=== PATIENT | male | born 1955 | race Two or more races ===

== ENCOUNTER 2022-05-30 13:39 | Emergency (ER) | payer MEDICARE, MEDICAID ==
[~2022-05-30] VITALS: Ht 175.3 cm; Wt 91.0 kg
[2022-05-30] MEDS: SODIUM CHLORIDE 0.9% 1,000 ML IV ONE (14:40)
[2022-05-30 15:01] LABS: CHLORIDE 107 mEq/L (98-107)
[2022-05-30 15:09] LABS: BASOPHILS % 0.5 % (0.0-2.0); EOSINOPHILS % 1.6 % (0.0-5.0); HEMATOCRIT. 32.2 % (42.0-52.0); LYMPHOCYTES % 26.8 % (20.0-50.0); MEAN CORPUSCULAR HEMOGLOBIN 31.1 pg (28.0-32.0); MEAN CORPUSCULAR VOLUME 91.4 fL (80.0-94.0); MEAN PLATELET VOLUME 9.1 fl (7.4-10.4); MONOCYTES % 8.7 % (2.0-8.0); NEUTROPHILS % 62.4 % (40.0-76.0); PLATELET 137 x1000/uL (130-400); RED BLOOD CELL COUNT 3.52 mill/uL (4.7-6.1)
[2022-05-30 15:25] LABS: PROTHROMBIN TIME 11.2 sec (9.6-11.0)
[2022-05-30 16:54] LABS: CLARITY URINE CLEAR (CLEAR); COLOR URINE YELLOW (YELLOW); KETONES URINE NEGATIVE (NEGATIVE); LEUKOCYTE ESTERASE URINE NEGATIVE (NEGATIVE); NITRITE URINE NEGATIVE (NEGATIVE); OCCULT BLOOD URINE NEGATIVE (NEGATIVE); PH URINE 6.5 (4.5-8.0); PROTEIN URINE NEGATIVE (NEGATIVE)
[2022-05-30 18:20] VITALS: BP 114/67
[2022-05-30] MEDS ORDERED: DOCU250C14 MT (19:46)
== END 2022-05-30 23:17 | disposition home or self-care (01) ==
LOC: ER 13:39
DX: R10.31 Right lower quadrant pain (principal); K59.00 Constipation, unspecified; J44.9 Chronic obstructive pulmonary disease, unspecified; K21.9 Gastro-esophageal reflux disease without esophagitis; E78.00 Pure hypercholesterolemia, unspecified; F20.9 Schizophrenia, unspecified
CPT/HCPCS: 36415; 74176; 76705; 80053; 81003; 83690; 85025; 85610; 99285; J7030

== ENCOUNTER 2025-10-14 13:57 | Emergency (ER) | payer MEDICARE, MEDICAID ==
[~2025-10-14] VITALS: Ht 172.7 cm; Wt 87.0 kg
[~2025-10-14 13:57] MED LIST: DOCU250C14 MT
[2025-10-14 14:08] VITALS: O2SAT 96
[2025-10-14] MEDS ORDERED: LIDO-53 TP (15:53)
[2025-10-14] MEDS ORDERED: ACET-2708 MT (15:53)
[2025-10-14] MEDS ORDERED: CYCL25PO15 MT (15:53)
[2025-10-14] MEDS: KETOROLAC 30MG/ML VIAL IM ONE (16:01)
[2025-10-14 16:03] VITALS: BP 131/70; PULSE 80; RESP 15; TEMP 36.8; O2SAT 99
== END 2025-10-14 16:17 | disposition home or self-care (01) ==
LOC: ER 13:57
DX: M25.552 Pain in left hip (principal); M25.551 Pain in right hip; E78.00 Pure hypercholesterolemia, unspecified; F20.9 Schizophrenia, unspecified; Z88.0 Allergy status to penicillin; Z91.81 History of falling
CPT/HCPCS: 99284; 73552; 72170; 96372; J1885